=== PATIENT | female | born 1940 | race Caucasian/White ===

== ENCOUNTER 2023-08-16 18:19 | Emergency (ER) | payer MEDICARE, OTHER ==
[~2023-08-16] VITALS: Ht 147.3 cm; Wt 63.0 kg
[2023-08-16] MEDS ORDERED: CT SWABBABLE VALVE TRANS SET 1 EA INFUS.SET MC ONE (18:41)
[2023-08-16] MEDS ORDERED: IOHEXOL-350 100 ML VIAL IV ONE (18:41)
[2023-08-16] MEDS ORDERED: IV NS 0.9% 250 ML IV ONE (18:41)
[2023-08-16 18:45] LABS: BASOPHILS # (AUTO) 0.1 K/uL (0.0-0.2); BASOPHILS % (AUTO) 1.2 % (0.0-2.0); EOSINOPHILS # (AUTO) 0.2 K/uL (0.0-0.7); EOSINOPHILS % (AUTO) 2.1 % (0.0-6.0); HEMATOCRIT 39 % (33-45); LYMPHOCYTES # (AUTO) 2.3 K/uL (0.8-4.8); LYMPHOCYTES % (AUTO) 22.5 % (20.0-44.0); MEAN CORPUSCULAR HEMOGLOBIN 31 PG (26.0-33.0); MEAN CORPUSCULAR HGB CONC 34 g/dl (31.0-36.0); MEAN CORPUSCULAR VOLUME 92 fL (82-100); MONOCYTES % (AUTO) 9.5 % (2.0-12.0); NEUTROPHILS # (AUTO) 6.6 K/uL (1.8-8.9); NEUTROPHILS % (AUTO) 64.7 % (43.0-81.0); PLATELET COUNT (AUTO) 256 K/uL (150-450); RED BLOOD CELL COUNT(AUTO) 4.22 MIL/uL (4.0-5.2); RED CELL DISTRIBUTION WIDTH 14.1 % (11.5-15.0); WHITE BLOOD COUNT (AUTO) 10.3 K/uL (4.3-11.0)
[2023-08-16 18:49] LABS: CALCIUM, SERUM 9.5 mg/dL (8.5-10.1); CARBON DIOXIDE 27 mmol/L (21-32); CHLORIDE 100 mmol/L (98-107); CREATININE 0.7 mg/dL (0.6-1.3); GLUCOSE 105 mg/dL (74-106); POTASSIUM 3.4 mmol/L (3.5-5.1); SODIUM SERUM 138 mmol/L (136-145); UREA NITROGEN, BLOOD 18 mg/dL (7-18)
[2023-08-16 18:55] LABS: INR 0.95 (0.91-1.10); PROTHROMBIN TIME 10.1 SECS (9.2-11.1)
[2023-08-16] MEDS ORDERED: CLOPIDOGREL BISULFATE 75 MG TABLET ONE (19:58)
[2023-08-16] MEDS: LABETALOL HCL IV 100MG VIAL IV PRN (20:36)
[2023-08-16] MEDS: ASPIRIN 81 MG TAB.CHEW PO ONE (20:40)
[2023-08-16] MEDS: CLOPIDOGREL BISULFATE 300 MG TABLET PO ONE (20:42)
[2023-08-16] MEDS: CLOPIDOGREL BISULFATE 75 MG TABLET PO ONE (23:27)
[2023-08-17 00:18] VITALS: BP 148/71; TEMP 98.5; O2SAT 97
== END 2023-08-17 | disposition short-term general hospital (02) ==
LOC: ER 18:33
DX: I63.89 Other cerebral infarction (principal); R29.810 Facial weakness; I16.1 Hypertensive emergency
CPT/HCPCS: 99291; 70498; 93005; 70496; 85025; 80048; 36415; 84484; 85730; 82962; 70450; J7050; Q9967